=== PATIENT | male | born 1975 | race Caucasian/White ===

== ENCOUNTER → 2016-07-29 | Outpatient (CLI) | payer OTHER ==
[2016-07-29 14:41] LABS: ALK PHOS 72 IU/L (33-138); ALT 32 IU/L (12-78); ANION GAP 9.8 (10.0-19.0); AST 25 IU/L (10-40); BLOOD UREA NITROGEN 20 mg/dL (6-24); CALCIUM 8.7 mg/dL (8.5-10.5); CHLORIDE 103 mMol/L (96-110); CO2 30 mMol/L (22-32); CREATININE 1.2 mg/dL (0.6-1.3); ESTIMATED GFR (MDRD EQUATION) > 60; POTASSIUM 3.8 mMol/L (3.7-5.1); SODIUM 139 mMol/L (135-145); TOTAL BILIRUBIN 0.4 mg/dL (0.0-1.5); TOTAL PROTEIN 7.4 g/dL (6.0-8.4)
== END | disposition disaster alternative care site (69) ==
LOC: GLAB 14:00
PROVIDERS: Pediatrics Pediatric Cardiology
DX: Q25.1 Coarctation of aorta (principal)